=== PATIENT | male | born 1985 | race American Indian/Alaskan Native ===

== ENCOUNTER 2018-01-06 15:04 | Emergency (ER) | payer MEDICAID, OTHER ==
[2018-01-06 16:16] VITALS: BMI 21.2
--- NOTE | 2018-01-06 17:27 | ED PDOC ---
Arrival/HPI - General Chief Complaint: Flu-like Symptoms Time Seen by Provider: 01/06/18 16:08 Historian: Patient - History of Present Illness Narrative History of Present Illness (Text): 01/06/18 17:24 32yo male with PMHx of Asthma who present with 8days history of cough, malaise, nausea, subjective fever. States he has being taking Theraflu. Took Tylenol last night. States fever and cough is usually at night. Denies chest pain, SOB, diaphoresis, sick contact, travel, any other complaint. Past Medical History - Provider Review Nursing Documentation Reviewed: Yes - Cardiac Hx Cardiac Disorders: No - Pulmonary Hx Asthma: Yes - Neurological Hx Neurological Disorder: No - HEENT Hx HEENT Disorder: No - Renal Hx Renal Disorder: No - Endocrine/Metabolic Hx Endocrine Disorders: No - Hematological/Oncological Hx Blood Disorders: No - Integumentary Hx Dermatological Disorder: No - Musculoskeletal/Rheumatological Hx Musculoskeletal Disorders: No - Gastrointestinal Hx Gastrointestinal Disorders: No - Genitourinary/Gynecological Hx Genitourinary Disorders: No - Psychiatric Hx Psychophysiologic Disorder: No Hx Substance Use: No Family/Social History - Physician Review Nursing Documentation Reviewed: Yes Family/Social History: Unknown Family HX Smoking Status: Never Smoked Hx Alcohol Use: Yes Hx Substance Use: No Allergies/Home Meds Allergies/Adverse Reactions: Allergies shellfish derived Allergy (Verified 01/06/18 16:11) ANAPHYLAXIS Review of Systems - Physician Review All systems were reviewed & negative as marked: Yes - Review of Systems Constitutional: Fatigue, Fevers Eyes: Normal ENT: Normal Respiratory: Cough. absent: SOB, Sputum, Wheezing Cardiovascular: Normal Gastrointestinal: Normal Genitourinary Male: Normal Musculoskeletal: Normal Skin: Normal Neurological: Normal Endocrine: Normal Hemo/Lymphatic: Normal Psychiatric: Normal Physical Exam Vital Signs Reviewed: Yes Vital Signs Temp Pulse Resp BP Pulse Ox 01/06/18 17:44 18 98 01/06/18 17:28 98.4 F 80 18 114/78 97 Temperature: Afebrile Blood Pressure: Normal Pulse: Regular Respiratory Rate: Normal Appearance: Positive for: Well-Appearing, Non-Toxic, Comfortable Pain Distress: None Mental Status: Positive for: Alert and Oriented X 3 - Systems Exam Head: Present: Atraumatic, Normocephalic Pupils: Present: PERRL Extroacular Muscles: Present: EOMI Conjunctiva: Present: Normal Mouth: Present: Moist Mucous Membranes Neck: Present: Normal Range of Motion Respiratory/Chest: Present: Clear to Auscultation, Good Air Exchange. No: Respiratory Distress, Accessory Muscle Use, Wheezes, Decreased Breath Sounds, Rales, Retracting, Rhonchi, Tachypneic Cardiovascular: Present: Regular Rate and Rhythm, Normal S1, S2. No: Murmurs Abdomen: Present: Normal Bowel Sounds. No: Tenderness, Distention, Peritoneal Signs Back: Present: Normal Inspection Upper Extremity: Present: Normal Inspection. No: Cyanosis, Edema Lower Extremity: Present: Normal Inspection. No: Edema Neurological: Present: GCS=15, CN II-XII Intact, Speech Normal Skin: Present: Warm, Dry, Normal Color. No: Rashes Psychiatric: Present: Alert, Oriented x 3, Normal Insight, Normal Concentration Medical Decision Making ED Course and Treatment: 01/06/18 20:39 Pt present with symptoms outside of antiviral treatment. He was afebrile. CXR NAD Rapid flu was negative Pt was tx with Zpack for URI Referred to her PMD. TRT ED for any new or worsening symptoms - Lab Interpretations Lab Results: Lab Results 01/06/18 16:40: Influenza Typ A,B (EIA) Negative for flu a/b - RAD Interpretation Radiology Orders: 01/06/18 16:13 CHEST TWO VIEWS (PA/LAT) [RAD] Stat - Medication Orders Current Medication Orders: Discontinued Medications Azithromycin (Zithromax) 500 mg PO STAT STA PRN Reason: Protocol Stop: 01/06/18 17:28 Last Admin: 01/06/18 17:37 Dose: 500 mg Disposition/Present on Arrival - Present on Arrival Any Indicators Present on Arrival: No History of DVT/PE: No History of Uncontrolled Diabetes: No Urinary Catheter: No History of Decub. Ulcer: No History Surgical Site Infection Following: None - Disposition Have Diagnosis and Disposition been Completed?: Yes Diagnosis: URI (upper respiratory infection) Disposition: HOME/ ROUTINE Disposition Time: 17:30 Patient Plan: Discharge Condition: STABLE Discharge Instructions (ExitCare): Viral Upper Respiratory Infection, Adult (DC ) Additional Instructions: Take medication as directed Follow up with your Doctor Return to ED for any new or worsening symptom Prescriptions: Azithromycin [Zithromax] 250 mg PO DAILY #4 tab Referrals: PCP,NO [Primary Care Provider] - Follow up with primary [facility] at [facility] [place] [Outside] - Follow up with primary Forms: [employer] (Hungarian), WORK NOTE
[2018-01-06 17:28] VITALS: BP 114/78; PULSE 80; RESP 18; TEMP 98.4
[2018-01-06 17:45] VITALS: O2SAT 98
== END 2018-01-06 17:45 | disposition home or self-care (01) ==
LOC: ED 15:04
DX: J06.9 Acute upper respiratory infection, unspecified (principal)

== ENCOUNTER 2018-03-21 20:56 | Emergency (ER) | payer SELFPAY ==
[2018-03-21 21:44] VITALS: BP 188/78; PULSE 79; RESP 18; TEMP 98.3; O2SAT 98
[2018-03-21 21:45] VITALS: BMI 22.5
--- NOTE | 2018-03-21 22:38 | ED PDOC ---
Arrival/HPI - General Chief Complaint: Abnormal Skin Integrity Time Seen by Provider: 03/21/18 22:32 Historian: Patient - History of Present Illness Narrative History of Present Illness (Text): 03/21/18 22:32 32yo male who present to ED for right chin laceration. States he sustained the laceration when a TV stand fell and cut his chin this evening. He states his last TD booster was last year. Denies any other complaint. Past Medical History - Provider Review Nursing Documentation Reviewed: Yes - Infectious Disease Hx of Infectious Diseases: None - Cardiac Hx Cardiac Disorders: No - Pulmonary Hx Respiratory Disorders: Yes Hx Asthma: Yes - Neurological Hx Neurological Disorder: No - HEENT Hx HEENT Disorder: No - Renal Hx Renal Disorder: No - Endocrine/Metabolic Hx Endocrine Disorders: No - Hematological/Oncological Hx Blood Disorders: No - Integumentary Hx Dermatological Disorder: No - Musculoskeletal/Rheumatological Hx Musculoskeletal Disorders: No - Gastrointestinal Hx Gastrointestinal Disorders: No - Genitourinary/Gynecological Hx Genitourinary Disorders: No - Psychiatric Hx Psychophysiologic Disorder: No Hx Substance Use: No Family/Social History - Physician Review Nursing Documentation Reviewed: Yes Family/Social History: Unknown Family HX Smoking Status: Never Smoked Hx Alcohol Use: Yes Hx Substance Use: No Allergies/Home Meds Allergies/Adverse Reactions: Allergies shellfish derived Allergy (Verified 03/21/18 21:45) ANAPHYLAXIS Home Medications: Home Meds Medication Instructions Recorded Confirmed No Known Home Med 03/21/18 03/21/18 Review of Systems - Physician Review All systems were reviewed & negative as marked: Yes - Review of Systems Constitutional: Normal Eyes: Normal ENT: Normal Respiratory: Normal Cardiovascular: Normal Gastrointestinal: Normal Genitourinary Male: Normal Musculoskeletal: Normal Skin: Laceration (right chin) Neurological: Normal Endocrine: Normal Hemo/Lymphatic: Normal Psychiatric: Normal Physical Exam Vital Signs Reviewed: Yes Vital Signs Temp Pulse Resp BP Pulse Ox 03/21/18 21:42 98.3 F 79 18 188/78 H 98 Temperature: Afebrile Blood Pressure: Normal Pulse: Regular Respiratory Rate: Normal Appearance: Positive for: Well-Appearing, Non-Toxic, Comfortable Pain Distress: None Mental Status: Positive for: Alert and Oriented X 3 - Systems Exam Head: Present: Atraumatic, Normocephalic Pupils: Present: PERRL Extroacular Muscles: Present: EOMI Conjunctiva: Present: Normal Mouth: Present: Moist Mucous Membranes Neck: Present: Normal Range of Motion Respiratory/Chest: Present: Clear to Auscultation, Good Air Exchange. No: Respiratory Distress, Accessory Muscle Use Cardiovascular: Present: Regular Rate and Rhythm, Normal S1, S2. No: Murmurs Abdomen: No: Tenderness, Distention, Peritoneal Signs Back: Present: Normal Inspection Upper Extremity: Present: Normal Inspection. No: Cyanosis, Edema Lower Extremity: Present: Normal Inspection. No: Edema Neurological: Present: GCS=15, CN II-XII Intact, Speech Normal Skin: Present: Warm, Dry, Normal Color, Laceration (3.0cm superficial linear laceration noted to right chin). No: Rashes Psychiatric: Present: Alert, Oriented x 3, Normal Insight, Normal Concentration Medical Decision Making ED Course and Treatment: 03/21/18 22:55 Wound was irrigated with NS. Approximated with dermabond and steri strip. Pt advised to keep wound clean and dry. Referred to his PMD. Procedure: Wound Repair - Consent Obtained Consent obtained: Verbal - Performed by Performed by: Mid-level Provider - Indications Indication(s):: Laceration - Location Shape:: Linear Dimensions Length cm: 3.0 Depth:: Epidermis - Debris Debris:: None - Irrigated Irrigated with ml of normal saline: 50 - Complexity Complexity:: Simple (one layer) - Wound repair method [place]:: Tissue glue, Steri-strips - Muscle repiar layer closed with Muscle repair layer closed with:: Wound well approximated, Tetanus up to date - Patient tolerated procedure Patient Tolerated Procedure:: Well Disposition/Present on Arrival - Present on Arrival Any Indicators Present on Arrival: No History of DVT/PE: No History of Uncontrolled Diabetes: No Urinary Catheter: No History of Decub. Ulcer: No History Surgical Site Infection Following: None - Disposition Have Diagnosis and Disposition been Completed?: Yes Diagnosis: Laceration Disposition: HOME/ ROUTINE Disposition Time: 22:50 Patient Plan: Discharge Patient Problems: Current Active Problems Problem Status Onset Laceration Acute Condition: STABLE Discharge Instructions (ExitCare): Laceration Repair Additional Instructions: Keep wound clean and dry Follow up with your doctor Return to ED for any new or worsening symptoms Referrals: [facility] at [facility] [place] [Outside] - Follow up with primary Forms: [employer] (Citizen [place])
== END 2018-03-21 22:55 | disposition home or self-care (01) ==
LOC: ED 20:56
DX: S01.81XA Laceration without foreign body of other part of head, initial encounter (principal); W20.8XXA Other cause of strike by thrown, projected or falling object, initial encounter

== ENCOUNTER 2018-06-27 20:35 | Emergency (ER) | payer SELFPAY ==
[2018-06-27 20:50] VITALS: BMI 21.2
[2018-06-27 20:51] VITALS: TEMP 98.4
[2018-06-27] MEDS ORDERED: Iohexol 240 (50 ml) ONE (21:42)
--- NOTE | 2018-06-27 21:44 | ED PDOC ---
Arrival/HPI <Donato Gaffney - Last Filed: 06/27/18 23:55> - General Historian: Patient - History of Present Illness Time/Duration: Other (4 days) Symptom Onset: Sudden Symptom Course: Worsening Activities at Onset: Rest, Light Context: Home <Cristy Johnson PA-C - Last Filed: 06/28/18 00:38> - General Chief Complaint: Abdominal Pain Time Seen by Provider: 06/27/18 21:07 - History of Present Illness Narrative History of Present Illness (Text): 06/27/18 21:40 A 32 year old male, with no significant past medical history, presents to the emergency department with a complaint of 4 day duration right lower quadrant abdominal pain. Patient states that 4 days ago the pain was intermittent and mild, but today the pain worsened becoming more constant. The patient denies fevers, chills, headache, dizziness, chest pain, shortness of breath, dyspnea on exertion, cough, nausea, vomiting, diarrhea, back pain, neck pain, urinary/ bowel changes, or any other complaint. (Cristy Johnson PA-C) Past Medical History - Provider Review Nursing Documentation Reviewed: Yes - Infectious Disease Hx of Infectious Diseases: None - Cardiac Hx Cardiac Disorders: No - Pulmonary Hx Respiratory Disorders: Yes Hx Asthma: Yes - Neurological Hx Neurological Disorder: No - HEENT Hx HEENT Disorder: No - Renal Hx Renal Disorder: No - Endocrine/Metabolic Hx Endocrine Disorders: No - Hematological/Oncological Hx Blood Disorders: No - Integumentary Hx Dermatological Disorder: No - Musculoskeletal/Rheumatological Hx Musculoskeletal Disorders: No - Gastrointestinal Hx Gastrointestinal Disorders: No - Genitourinary/Gynecological Hx Genitourinary Disorders: No - Psychiatric Hx Psychophysiologic Disorder: No Hx Substance Use: No <Cristy Johnson PA-C - Last Filed: 06/28/18 00:38> Family/Social History - Physician Review Nursing Documentation Reviewed: Yes Family/Social History: No Known Family HX Smoking Status: Never Smoked Hx Alcohol Use: Yes Hx Substance Use: No <Cristy Johnson PA-C - Last Filed: 06/28/18 00:38> Allergies/Home Meds <Donato Gaffney - Last Filed: 06/27/18 23:55> <Cristy Johnson PA-C - Last Filed: 06/28/18 00:38> Allergies/Adverse Reactions: Allergies shellfish derived Allergy (Verified 06/27/18 20:50) ANAPHYLAXIS Review of Systems - Physician Review All systems were reviewed & negative as marked: Yes - Review of Systems Constitutional: absent: Fevers Respiratory: absent: SOB, Cough Cardiovascular: absent: Chest Pain, ANDUJAR Gastrointestinal: Abdominal Pain (RUQ pain). absent: Stool Changes, Diarrhea, Nausea, Vomiting Genitourinary Male: absent: Urinary Output Changes Musculoskeletal: absent: Back Pain, Neck Pain Neurological: absent: Headache, Dizziness <Cristy Johnson PA-C - Last Filed: 06/28/18 00:38> Physical Exam Vital Signs Reviewed: Yes Temperature: Afebrile Blood Pressure: Normal Pulse: Regular Respiratory Rate: Normal Appearance: Positive for: Well-Appearing, Non-Toxic, Comfortable Pain Distress: None Mental Status: Positive for: Alert and Oriented X 3 - Systems Exam Head: Present: Atraumatic, Normocephalic Pupils: Present: PERRL Extroacular Muscles: Present: EOMI Conjunctiva: Present: Normal Mouth: Present: Moist Mucous Membranes Neck: Present: Normal Range of Motion Respiratory/Chest: Present: Clear to Auscultation, Good Air Exchange. No: Respiratory Distress, Accessory Muscle Use Cardiovascular: Present: Regular Rate and Rhythm, Normal S1, S2. No: Murmurs Abdomen: No: Tenderness, Distention, Peritoneal Signs, Rebound, Guarding, McBurney's Point Tender, Rovsing's Sign Present Back: Present: Normal Inspection. No: CVA Tenderness, Midline Tenderness, Paraspinal Tenderness Upper Extremity: Present: Normal Inspection. No: Cyanosis, Edema Lower Extremity: Present: Normal Inspection. No: Edema Neurological: Present: GCS=15, CN II-XII Intact, Speech Normal Skin: Present: Warm, Dry, Normal Color. No: Rashes Psychiatric: Present: Alert, Oriented x 3, Normal Insight, Normal Concentration <Cristy Johnson PA-C - Last Filed: 06/28/18 00:38> Vital Signs Temp Pulse Resp BP Pulse Ox 06/27/18 22:36 98.4 F 70 20 125/74 100 06/27/18 20:50 98.4 F 73 18 127/78 97 Medical Decision Making <Donato Gaffney - Last Filed: 06/27/18 23:55> - Lab Interpretations I have reviewed the lab results: Yes <Cristy Johnson PA-C - Last Filed: 06/28/18 00:38> ED Course and Treatment: 06/27/18 21:45 Impression: A 32 year old male presents to the emergency department with 4 day duration right upper quadrant abdominal pain. Plan: -- Abdomen/Pelvis CT -- Urinalysis -- Urine Culture -- Labs -- Toradol -- Reassess and disposition Progress Notes: Labs : UA +blood and +evidence of infection, rest of the labs are wnl. CT Abdomen and Pelvis Without Intravenous Contrast CLINICAL HISTORY: 32 years old, male; Pain; Abdominal pain; Localized; Right; Additional info: Rlq pain, R/O appendicitis TECHNIQUE: Axial computed tomography images of the abdomen and pelvis without intravenous contrast. All CT scans at this facility use at least one of these dose optimization techniques: automated exposure control; mA and/or kV adjustment per patient size (includes targeted exams where dose is matched to clinical indication); or iterative reconstruction. Coronal and sagittal reformatted images were created and reviewed. COMPARISON: No relevant prior studies available. FINDINGS: Lung bases: Unremarkable. No mass. No consolidation. ABDOMEN: Liver: Unremarkable. Gallbladder and bile ducts: Unremarkable. No calcified stones. No ductal dilation. Pancreas: Pancreas evaluation is limited. No ductal dilation. Spleen: Unremarkable. No splenomegaly. Adrenals: Unremarkable. No mass. Kidneys and ureters: 4 mm calculus is noted in the right proximal ureter with right mild hydronephrosis. Non-obstructing calculus in the left kidney. Stomach and bowel: Bowel evaluation is limited. No obstruction. No mucosal thickening. PELVIS: Appendix: No findings to suggest acute appendicitis. Bladder: Unremarkable. No stones. Reproductive: Unremarkable as visualized. ABDOMEN and PELVIS: Intraperitoneal space: Unremarkable. No free air. No significant fluid collection. Bones/joints: No acute fracture. No dislocation. Soft tissues: Unremarkable. Vasculature: Unremarkable. No abdominal aortic aneurysm. Lymph nodes: There are few lymph nodes in the right lower quadrant. IMPRESSION: 4 mm calculus is noted in the right proximal ureter with right mild hydronephrosis. Dictated and Authenticated by: Gale Fong MD 06/27/2018 11:20 PM Eastern Time ([place] & [place]) On re-evaluation, patient reports improvement of symptoms, denies any abdominal pain, flank pain or nausea. On exam, patient remains AAOx3, in no acute distress. Diagnostic results d/w the patient in great detail. Diagnosis of renal colic and UTI d/w the patient. Based on history, exam and diagnostic results, plan will be for outpatient follow up. Patient instructed to follow-up with referral provided in 1-2 days without fail. Advised to take medication as prescribed. Return to the emergency room at any time for any new or worsening symptoms. Patient states he fully agrees with and understands discharge instructions. States that he agrees with the plan and disposition. Verbalized and repeated discharge instructions and plan. I have given the patient opportunity to ask any additional questions. (Alex CISNEROS, Cristy Hernandez) - Lab Interpretations Lab Results: 06/27/18 21:31 06/27/18 21:31 Lab Results 06/27/18 22:15: Urine Color Yellow, Urine Appearance Sl cloudy, Urine pH 6.0, Ur Specific [place] 1.015, Urine Protein Negative, Urine Glucose (UA) Negative, Urine Ketones Negative, Urine Blood Large H, Urine Nitrate Negative, Urine Bilirubin Negative, Urine Urobilinogen 0.2, Ur Leukocyte Esterase Small H, Urine RBC Tntc, Urine WBC 1 - 3, Ur Epithelial Cells 0 - 2, Urine Bacteria Rare , Urine Other Mucus 06/27/18 21:31: Sodium 142, Potassium 3.4 L, Chloride 102, Carbon Dioxide 27, Anion Gap 16, BUN 11, Creatinine 0.9, Est GFR ( Amer) > 60, Est GFR (Non- Af Amer) > 60, Random Glucose 102, Calcium 9.4, Total Bilirubin 0.8, AST 30, ALT 27, Alkaline Phosphatase 80, Total Protein 9.5 H, Albumin 4.7, Globulin 4.8 , Albumin/Globulin Ratio 1.0 L, Lipase 42 06/27/18 21:31: WBC 9.9, RBC 4.87, Hgb 14.8, Hct 43.7, MCV 89.7, MCH 30.4, MCHC 33.9, RDW 12.7, Plt Count 292, MPV 10.5, Gran % 58.7, Lymph % (Auto) 30.1, [place] % (Auto) 9.0 H, Eos % (Auto) 2.0, Baso % (Auto) 0.2, Gran # 5.83, Lymph # (Auto ) 3.0, [place] # (Auto) 0.9 H, Eos # (Auto) 0.2, Baso # (Auto) 0.02 - RAD Interpretation Radiology Orders: 06/27/18 21:30 ABD & PELVIS PO CONTRAST ONLY [CT] Stat - Medication Orders Current Medication Orders: Discontinued Medications Ceftriaxone Sodium (Rocephin 1 Gram Ivpb) 1 gm in 100 mls @ 200 mls/hr IVPB STAT STA PRN Reason: Protocol Stop: 06/28/18 00:00 Last Admin: 06/28/18 00:08 Dose: 200 mls/hr eMAR Start Stop Document 06/28/18 00:08 LA (Rec: 06/28/18 00:08 [email or web address]) Intravenous Solution Start Date 06/28/18 Start Time 00:08 End Date 06/28/18 End time 00:38 Total Infusion Time 30 Ketorolac Tromethamine (Toradol) 30 mg IVP STAT STA Stop: 06/27/18 21:31 Last Admin: 06/27/18 21:40 Dose: 30 mg [facility] Pain Assessment Document 06/27/18 21:40 LA (Rec: 06/27/18 21:40 LA [email or web address]) Pain Reassessment Is this a pain reassessment? No Sleep Is patient sleeping during reassessment? No Presence of Pain Presence of Pain Yes Pain Scale Used Pain Scale Used Numeric Location Pain Location Body Site Abdomen Description Description Intermittent Intensity of Pain at present 6 Pain Behavior Guarding IVP Administration Document 06/27/18 21:40 LA (Rec: 06/27/18 21:40 [email or web address]) Charges for Administration # of IVP Administrations 1 Re-Assess: JEIMY Pain Assessment Document 06/27/18 22:40 LA (Rec: 06/28/18 00:09 LA [facility]) Pain Reassessment Is this a pain reassessment? Yes Sleep Is patient sleeping during reassessment? No Presence of Pain Presence of Pain Yes Pain Scale Used Pain Scale Used Numeric Description Intensity of Pain at present 2 Tamsulosin HCl (Flomax) 0.4 mg PO STAT STA Stop: 06/27/18 23:32 Last Admin: 06/28/18 00:08 Dose: 0.4 mg - PA / WASTEWATER DESIGN ENGINEER / Resident Statement JAYMIE has reviewed & agrees with the documentation as recorded. <YeimyDonato - Last Filed: 06/27/18 23:55> - PA / WASTEWATER DESIGN ENGINEER / Resident Statement JAYMIE has reviewed & agrees with the documentation as recorded. - Scribe Statement The provider has reviewed the documentation as recorded by the Scribe <Cristy Johnson PA-C - Last Filed: 06/28/18 00:38> - Scribe Statement Shayla Zamudio Provider Scribe Attestation: All medical record entries made by the Scribe were at my direction and personally dictated by me. I have reviewed the chart and agree that the record accurately reflects my personal performance of the history, physical exam, medical decision making, and the department course for this patient. I have also personally directed, reviewed, and agree with the discharge instructions and disposition. (Cristy Johnson PA-C) Disposition/Present on Arrival <YeimyDonato - Last Filed: 06/27/18 23:55> - Present on Arrival Any Indicators Present on Arrival: No History of DVT/PE: No History of Uncontrolled Diabetes: No Urinary Catheter: No History of Decub. Ulcer: No History Surgical Site Infection Following: None - Disposition Have Diagnosis and Disposition been Completed?: Yes Disposition Time: 00:00 Patient Plan: Discharge <Cristy Johnson PA-C - Last Filed: 06/28/18 00:38> - Disposition Diagnosis: Renal colic, UTI (urinary tract infection) Disposition: HOME/ ROUTINE Condition: STABLE Discharge Instructions (ExitCare): Renal Colic (DC), Urinary Tract Infection, Adult (DC) Additional Instructions: Thank you for letting us take care of you today. You were treated for renal colic, UTI. The emergency medical care you received today was directed at your acute symptoms. If you were prescribed any medication, please fill it and take as directed. It may take several days for your symptoms to resolve. Return to the Emergency Department if your symptoms worsen, do not improve, or if you have any other problems. Please contact your doctor in 2 days for re-evaluation and follow up / or call one of the physicians/clinics you have been referred to that are listed on the Patient Visit Information form that is included in your discharge packet. Bring any paperwork you were given at discharge with you along with any medications you are taking to your follow up visit. Our treatment cannot replace ongoing medical care by a primary care provider (PCP) outside of the emergency department. Thank you for allowing the [facility] team to be part of your care today. If you had a urine culture test done : We will call you regarding any positive results If you had a CT : A Radiologist will review the ED reading if any change in treatment is needed we will contact you. Prescriptions: Ciprofloxacin [Cipro] 500 mg PO BID #14 tab Meloxicam [Mobic] 15 mg PO DAILY #20 tab Tamsulosin [Flomax] 0.4 mg PO DAILY #20 cap Referrals: FAMILY PROVIDER,NO [Primary Care Provider] - Follow up with primary Louann Cevallos MD [Staff Provider] - Follow up with primary Forms: [employer] (Polish)
[2018-06-27 21:53] LABS: BASO # 0.02 K/mm3 (0.0-2.0); BASO % 0.2 % (0.0-3.0); EOS # 0.2 (0.0-0.7); GRAN # 5.83 (1.4-6.5); GRAN % 58.7 % (50.0-68.0); HEMOGLOBIN 14.8 g/dL (14.0-18.0); LYMPH % 30.1 % (22.0-35.0); MEAN CELL VOLUME 89.7 fl (80.0-105.0); MEAN CORPUSCULAR HEMOGLOBIN 30.4 pg (25.0-35.0); MEAN CORPUSCULAR HGB CONC 33.9 g/dl (31.0-37.0); MEAN PLATELET VOLUME 10.5 fl (7.0-11.0); MONO # 0.9 (0.1-0.6); RBC 4.87 10^6/uL (3.5-6.1); RED CELL DISTRIBUTION WIDTH 12.7 % (11.5-14.5); WHITE BLOOD COUNT 9.9 10^3/ul (4.5-11.0)
[2018-06-27 21:58] LABS: ALBUMIN 4.7 g/dL (3.0-4.8); ALT/SGPT 27 U/L (7-56); AST/SGOT 30 U/L (17-59); BLOOD UREA NITROGEN 11 mg/dL (7-21); CALCIUM 9.4 mg/dL (8.4-10.5); GFR AFRICAN-AMERICAN > 60; GFR NON-AFRICAN AMERICAN > 60; LIPASE 42 U/L (23-300)
[2018-06-27 22:41] LABS: URINE BILIRUBIN NEGATIVE (NEGATIVE); URINE BLOOD LARGE (NEGATIVE); URINE GLUCOSE (UA) NEGATIVE (NEGATIVE); URINE LEUKOCYTE ESTERASE SMALL Leu/uL (NEGATIVE); URINE PROTEIN NEGATIVE mg/dL (<30 mg/dL); URINE UROBILINOGEN 0.2 E.U./dL (<1 E.U./dL)
[2018-06-27 22:42] LABS: URINE COLOR YELLOW (YELLOW)
[2018-06-27 22:43] LABS: URINE APPEARANCE SL CLOUDY (CLEAR)
[2018-06-27 22:53] LABS: URINE RBC TNTC /hpf (0-2)
[2018-06-27 22:54] LABS: URINE BACTERIA RARE (NEG); URINE EPITHELIAL CELLS 0 - 2 /hpf (0-5)
[2018-06-27 23:08] VITALS: O2SAT 100
[2018-06-27] MEDS ORDERED: cefTRIAXone 1 gm 1 GM/100 ML BAG IVPB STA (23:31)
[2018-06-28 00:54] VITALS: BP 130/69; PULSE 75; RESP 19
--- NOTE | 2018-06-28 08:54 | CT ---
Date of service: 06/27/2018 PROCEDURE: CT Abdomen and Pelvis without intravenous contrast HISTORY: RLQ pain, r/o appendicitis COMPARISON: None. TECHNIQUE: Without contrast. Contrast dose: Radiation dose: Total exam DLP = 270 mGy-cm. This CT exam was performed using one or more of the following dose reduction techniques: Automated exposure control, adjustment of the mA and/or kV according to patient size, and/or use of iterative reconstruction technique. FINDINGS: LOWER THORAX: Unremarkable. LIVER: Unremarkable. No gross lesion or ductal dilatation. GALLBLADDER AND BILE DUCTS: Unremarkable. PANCREAS: Unremarkable. No gross lesion or ductal dilatation. SPLEEN: Unremarkable. ADRENALS: Unremarkable. No mass. KIDNEYS AND URETERS: There is a 4 mm stone in the lower pole of the left kidney. There is a 4 mm stone in the proximal right ureter with minimal hydronephrosis. VASCULATURE: Unremarkable. No aortic aneurysm. BOWEL: Unremarkable. No obstruction. No gross mural thickening. APPENDIX: Unremarkable. Normal appendix. PERITONEUM: Unremarkable. No free fluid. No free air. LYMPH NODES: Unremarkable. No enlarged lymph nodes. BLADDER: Unremarkable. REPRODUCTIVE: Unremarkable. BONES: No acute fracture. OTHER FINDINGS: The report concurs with the preliminary [facility] report IMPRESSION: There is a 4 mm stone in the lower pole of the left kidney. There is a 4 mm stone in the proximal right ureter with minimal hydronephrosis.
== END 2018-06-28 00:32 | disposition home or self-care (01) ==
LOC: ED 20:35
DX: N23 Unspecified renal colic (principal); N39.0 Urinary tract infection, site not specified
CPT/HCPCS: 74176; 80053; 81001; 83690; 85025; 87086; 96365; 96374; 99284; J0696; J1885; Q9966

== ENCOUNTER 2018-07-08 03:55 | Emergency (ER) | payer SELFPAY ==
[2018-07-08 03:55] VITALS: BMI 21.2
[2018-07-08 04:26] VITALS: RESP 18; TEMP 97.7; O2SAT 100
[2018-07-08] MEDS ORDERED: Sodium Chloride 0.9% 1,000 ML IV STA (05:22)
--- NOTE | 2018-07-08 05:27 | ED PDOC ---
Arrival/HPI - General Chief Complaint: Abdominal Pain Time Seen by Provider: 07/08/18 05:06 Historian: Patient - History of Present Illness Narrative History of Present Illness (Text): 07/08/18 05:27 33 y/o M w/ h/o kidney stone, presents to the emergency department complaining of abdominal pain on going for the last couple of days. Patient reports having recently being diagnosed with a kidney stone. Patient reports when he was seen in the ER he was given pain medication, but reportedly was discharged home with no prescriptions. Patient reports right sided abdominal pain and returned because pain worsened over time. Patient denies any fever, chills, chest pain, shortness of breath, nausea, vomiting, diarrhea, urinary symptoms, back pain, neck pain, headache, dizziness, or any other complaints. Time/Duration: Prior to Arrival Symptom Onset: Sudden Symptom Course: Worsening Severity Level: 10 Activities at Onset: Rest Context: Home Past Medical History - Provider Review Nursing Documentation Reviewed: Yes - Travel History Have you recently traveled outside [place] w/in the past 3 mons?: No - Infectious Disease Hx of Infectious Diseases: None - Cardiac Hx Cardiac Disorders: No - Pulmonary Hx Respiratory Disorders: Yes Hx Asthma: Yes - Neurological Hx Neurological Disorder: No - HEENT Hx HEENT Disorder: No - Renal Hx Renal Disorder: No - Endocrine/Metabolic Hx Endocrine Disorders: No - Hematological/Oncological Hx Blood Disorders: No - Integumentary Hx Dermatological Disorder: No - Musculoskeletal/Rheumatological Hx Musculoskeletal Disorders: No - Gastrointestinal Hx Gastrointestinal Disorders: No - Genitourinary/Gynecological Hx Genitourinary Disorders: No - Psychiatric Hx Psychophysiologic Disorder: No Hx Substance Use: No Family/Social History - Physician Review Nursing Documentation Reviewed: Yes Family/Social History: No Known Family HX Smoking Status: Never Smoked Hx Alcohol Use: Yes Hx Substance Use: No Allergies/Home Meds Allergies/Adverse Reactions: Allergies shellfish derived Allergy (Verified 06/27/18 20:50) ANAPHYLAXIS Review of Systems - Physician Review All systems were reviewed & negative as marked: Yes - Review of Systems Constitutional: absent: Fevers, Other (Chills) Respiratory: absent: SOB Cardiovascular: absent: Chest Pain Gastrointestinal: Abdominal Pain. absent: Stool Changes, Diarrhea, Nausea, Vomiting Genitourinary Male: absent: Dysuria, Frequency, Hematuria Musculoskeletal: absent: Back Pain, Neck Pain Neurological: absent: Headache, Dizziness Physical Exam Vital Signs Reviewed: Yes Vital Signs Temp Pulse Resp BP Pulse Ox 07/08/18 06:56 70 18 114/79 100 07/08/18 04:25 97.7 F 75 18 106/69 100 Temperature: Afebrile Blood Pressure: Normal Pulse: Regular Respiratory Rate: Normal Appearance: Positive for: Well-Appearing, Non-Toxic, Comfortable Pain Distress: None Mental Status: Positive for: Alert and Oriented X 3 - Systems Exam Head: Present: Atraumatic, Normocephalic Pupils: Present: PERRL Extroacular Muscles: Present: EOMI Conjunctiva: Present: Normal Mouth: Present: Moist Mucous Membranes Neck: Present: Normal Range of Motion Respiratory/Chest: Present: Clear to Auscultation, Good Air Exchange. No: Respiratory Distress, Accessory Muscle Use Cardiovascular: Present: Regular Rate and Rhythm, Normal S1, S2. No: Murmurs Abdomen: Present: Tenderness (Right lower quadrant pain). No: Distention, Peritoneal Signs Back: Present: CVA Tenderness (right-sided CVA tenderness) Upper Extremity: Present: Normal Inspection. No: Cyanosis, Edema Lower Extremity: Present: Normal Inspection. No: Edema Neurological: Present: GCS=15, CN II-XII Intact, Speech Normal Skin: Present: Warm, Dry, Normal Color. No: Rashes Psychiatric: Present: Alert, Oriented x 3, Normal Insight, Normal Concentration Medical Decision Making ED Course and Treatment: 07/08/18 05:27 Impression: 33 y/o M w/ R abdominal pain and CVA tenderness consistent w/ renal colic Plan: -- IV Fluids --Toradol --Zofran --Morphine -- UA -- Reassess and disposition Prior Visits: Notes and results from pervious visits were reviewed. Patient was last seen in the emergency department on 06/27/18 presents complaining of right lower quadrant abdominal pain for the last 4 days. Patient was discharged. Progress Notes: 07/08/18 06:15 Patient reexamined and feels better after analgesics. Advised to continue supportive therapy with continous intake of fluids, pain medications when necessary and straining of urine. Patient demonstrates understanding and will follow up with PCP. Scripts for pain control provided. He is ambulatory and stable for discharge. - Medication Orders Current Medication Orders: Discontinued Medications Sodium Chloride (Sodium Chloride 0.9%) 1,000 mls @ 999 mls/hr IV .Q1H1M STA Stop: 07/08/18 06:22 Last Admin: 07/08/18 05:50 Dose: 999 mls/hr eMAR Start Stop Document 07/08/18 05:50 CNR (Rec: 07/08/18 05:50 CNR [id number]) Intravenous Solution Start Date 07/08/18 Start Time 05:50 End Date 07/08/18 End time 06:50 Total Infusion Time 60 Ketorolac Tromethamine (Toradol) 30 mg IVP STAT STA Stop: 07/08/18 05:23 Last Admin: 07/08/18 05:50 Dose: 30 mg MAR Pain Assessment Document 07/08/18 05:50 CNR (Rec: 07/08/18 05:50 CNR [id number]) Pain Reassessment Is this a pain reassessment? No IVP Administration Document 07/08/18 05:50 CNR (Rec: 07/08/18 05:50 CNR [id number]) Charges for Administration # of IVP Administrations 1 Morphine Sulfate (Morphine) 2 mg IVP STAT STA Stop: 07/08/18 06:15 Last Admin: 07/08/18 06:28 Dose: 2 mg MAR Pain Assessment Document 07/08/18 06:28 CNR (Rec: 07/08/18 06:28 CNR [id number]) Pain Reassessment Is this a pain reassessment? No IVP Administration Document 07/08/18 06:28 CNR (Rec: 07/08/18 06:28 CNR [id number]) Charges for Administration # of IVP Administrations 1 Ondansetron HCl (Zofran Inj) 4 mg IVP STAT STA Stop: 07/08/18 05:25 Last Admin: 07/08/18 05:49 Dose: 4 mg IVP Administration Document 07/08/18 05:49 CNR (Rec: 07/08/18 05:49 CNR [id number]) Charges for Administration # of IVP Administrations 1 - Scribe Statement The provider has reviewed the documentation as recorded by the Clarice Funes Provider Scribe Attestation: All medical record entries made by the Scribe were at my direction and personally dictated by me. I have reviewed the chart and agree that the record accurately reflects my personal performance of the history, physical exam, medical decision making, and the department course for this patient. I have also personally directed, reviewed, and agree with the discharge instructions and disposition. Disposition/Present on Arrival - Present on Arrival Any Indicators Present on Arrival: No History of DVT/PE: No History of Uncontrolled Diabetes: No Urinary Catheter: No History of Decub. Ulcer: No History Surgical Site Infection Following: None - Disposition Have Diagnosis and Disposition been Completed?: Yes Diagnosis: Renal colic Disposition: HOME/ ROUTINE Disposition Time: 06:46 Patient Plan: Discharge Condition: STABLE Discharge Instructions (ExitCare): Renal Colic (DC) Prescriptions: oxyCODONE/Acetaminophen [Percocet 5/325 mg Tab] 1 ea PO PRN PRN 3 Days #6 tab PRN Reason: Pain, Severe (8-10) Referrals: FAMILY PROVIDER,NO [Primary Care Provider] - Follow up with primary Forms: [facility] ([place])
[2018-07-08] MEDS ORDERED: Morphine 2 mg/ml ISec IVP STA (06:14)
[2018-07-08 06:57] VITALS: BP 114/79; PULSE 70
== END 2018-07-08 06:56 | disposition home or self-care (01) ==
LOC: ED 03:55
DX: N23 Unspecified renal colic (principal)
CPT/HCPCS: 96361; 96374; 96375; 99283; J1885; J2270; J2405; J7030

== ENCOUNTER 2019-04-15 01:25 | Observation (INO) | payer SELFPAY ==
[2019-04-15 02:07] VITALS: BMI 21.9
[2019-04-15] MEDS ORDERED: Sodium Chloride 0.9% 1,000 ML IV STA (02:15)
--- NOTE | 2019-04-15 02:19 | ED PDOC ---
Arrival/HPI - General Chief Complaint: Back Pain Time Seen by Provider: 04/15/19 02:11 Historian: Patient - History of Present Illness Narrative History of Present Illness (Text): 04/15/19 02:16 A 33 year old male, whose past medical history includes kidney stones, presents to the emergency department with a complaint of left sided abdominal/flank pain which started early today. He describes it as sharp and intermittent with associated nausea and vomiting. He denies fevers, chills, headache, dizziness, chest pain, shortness of breath, dyspnea on exertion, cough, diarrhea, neck pain, urinary/bowel changes, difficulty urinating, or any other complaint. Time/Duration: Other (Today) Symptom Onset: Sudden Symptom Course: Unchanged Activities at Onset: Rest, Light Context: Home Past Medical History - Provider Review Nursing Documentation Reviewed: Yes - Infectious Disease Hx of Infectious Diseases: None - Cardiac Hx Cardiac Disorders: No - Pulmonary Hx Respiratory Disorders: Yes Hx Asthma: Yes - Neurological Hx Neurological Disorder: No - HEENT Hx HEENT Disorder: No - Renal Hx Renal Disorder: No - Endocrine/Metabolic Hx Endocrine Disorders: No - Hematological/Oncological Hx Blood Disorders: No - Integumentary Hx Dermatological Disorder: No - Musculoskeletal/Rheumatological Hx Musculoskeletal Disorders: No - Gastrointestinal Hx Gastrointestinal Disorders: No - Genitourinary/Gynecological Hx Genitourinary Disorders: No - Psychiatric Hx Psychophysiologic Disorder: No Hx Substance Use: No - Anesthesia Hx Anesthesia: Yes Hx Anesthesia Reactions: No Hx Malignant Hyperthermia: No Family/Social History - Physician Review Nursing Documentation Reviewed: Yes Family/Social History: No Known Family HX Smoking Status: Never Smoked Hx Alcohol Use: Yes Hx Substance Use: No Allergies/Home Meds Allergies/Adverse Reactions: Allergies shellfish derived Allergy (Verified 04/15/19 02:07) ANAPHYLAXIS Home Medications: Home Meds Medication Instructions Recorded Confirmed Albuterol 0.083% [Albuterol 0.083% 1 puff INH PRN PRN 04/15/19 04/15/19 Inhal Jocelynn (2.5 mg/3 ml) UD] Review of Systems - Physician Review All systems were reviewed & negative as marked: Yes - Review of Systems Constitutional: absent: Fevers Respiratory: absent: SOB, Cough Cardiovascular: absent: Chest Pain, ANDUJAR Gastrointestinal: Abdominal Pain, Nausea, Vomiting. absent: Stool Changes, Diarrhea Genitourinary Male: absent: Urinary Output Changes Musculoskeletal: absent: Neck Pain Neurological: absent: Headache, Dizziness Physical Exam Appearance: Positive for: Well-Appearing, Non-Toxic, Comfortable Pain Distress: None Mental Status: Positive for: Alert and Oriented X 3 - Systems Exam Head: Present: Atraumatic, Normocephalic Pupils: Present: PERRL Extroacular Muscles: Present: EOMI Conjunctiva: Present: Normal Mouth: Present: Moist Mucous Membranes Neck: Present: Normal Range of Motion Respiratory/Chest: Present: Clear to Auscultation, Good Air Exchange. No: Respiratory Distress, Accessory Muscle Use Cardiovascular: Present: Regular Rate and Rhythm, Normal S1, S2. No: Murmurs Abdomen: No: Tenderness, Distention, Peritoneal Signs Back: Present: Normal Inspection Upper Extremity: Present: Normal Inspection. No: Cyanosis, Edema Lower Extremity: Present: Normal Inspection. No: Edema Neurological: Present: GCS=15, CN II-XII Intact, Speech Normal Skin: Present: Warm, Dry, Normal Color. No: Rashes Psychiatric: Present: Alert, Oriented x 3, Normal Insight, Normal Concentration Medical Decision Making ED Course and Treatment: 04/15/19 02:18 Impression: A 33 year old male presents to the emergency department with a complaint of left sided abdominal/flank pain. Plan: -- Abdomen/Pelvis CT -- Urinalysis -- Labs -- Toradol, Zofran, and IV Fluids -- Reassess and disposition Prior Visits: Notes and results from previous visits were reviewed. Progress Notes: CT SCAN OF THE ABDOMEN AND PELVIS WITHOUT ORAL OR IV CONTRAST. .CT SCAN OF THE ABDOMEN AND PELVIS WITHOUT ORAL OR IV CONTRAST. CLINICAL INDICATION: Left-sided abdominal pain. TECHNIQUE: Axial and reformatted sagittal and coronal images of the abdomen pelvis obtained without IV contrast administration. COMPARISON: None. FINDINGS: The visualized lung bases are unremarkable. Normal unenhanced liver. Normal gallbladder and extrahepatic biliary system. Normal unenhanced spleen. Normal pancreas. Normal bilateral adrenal glands. Normal size of the right kidney. There is no right renal mass. There are no right renal calculi. There is no right hydronephrosis. Normal visualized right ureter. Normal size of the left kidney. There is no left renal mass. 4mm left renal nonobstructing stone. 4.4 mm obstructing stone of the left ureter at L3 level. Mild left hydroureteronephrosis. Left perinephric free fluid and fat stranding. Normal visualized stomach. Normal small intestine. Normal colon. The appendix is visualized and appears normal. There is no demonstrated peritoneal fluid. Normal abdominal aorta. Normal inferior vena cava. Normal retroperitoneum. Mild diffuse thickening of the urinary bladder. There is no pelvic mass lesion or lymphadenopathy. There is no pelvic fluid. Mild prostatomegaly. Scattered prostatic calcifications. Normal abdominal wall. Normal osseous structures. IMPRESSION: Obstructing stone of the proximal left ureter. Electronically signed on April 15, 2019 4:37:38 AM EDT by: Avel Love M.D., Certified by ABR, MSK, Neuroradiology 04/15/19 05:01: Case discussed with Dr. Brown and emergency medical service manager. Accept patient for [facility]. 04/15/19 05:03 - Lab Interpretations I have reviewed the lab results: Yes - RAD Interpretation Radiology Orders: 04/15/19 02:15 ABD & PELVIS W/O PO OR IV CONT [CT] Stat - Medication Orders Current Medication Orders: Sodium Chloride (Sodium Chloride 0.9%) 1,000 mls @ 999 mls/hr IV .Q1H1M STA Stop: 04/15/19 03:15 Ketorolac Tromethamine (Toradol) 30 mg IVP ONCE ONE Stop: 04/15/19 02:16 Ondansetron HCl (Zofran Inj) 4 mg IVP ONCE ONE Stop: 04/15/19 02:16 - Scribe Statement The provider has reviewed the documentation as recorded by the Michelleibe Shayla Zamudio Provider Scribe Attestation: All medical record entries made by the Scribe were at my direction and personally dictated by me. I have reviewed the chart and agree that the record accurately reflects my personal performance of the history, physical exam, medical decision making, and the department course for this patient. I have also personally directed, reviewed, and agree with the discharge instructions and disposition. Disposition/Present on Arrival - Present on Arrival Any Indicators Present on Arrival: No History of DVT/PE: No History of Uncontrolled Diabetes: No Urinary Catheter: No History of Decub. Ulcer: No History Surgical Site Infection Following: None - Disposition Have Diagnosis and Disposition been Completed?: Yes Diagnosis: Renal colic, Intractable pain Disposition: HOSPITALIZED Disposition Time: 05:08 Condition: STABLE Forms: [facility] ([place])
[2019-04-15 03:25] LABS: HEMOGLOBIN 14.5 g/dL (14.0-18.0); MEAN CELL VOLUME 91.9 fl (80.0-105.0); MEAN CORPUSCULAR HEMOGLOBIN 30.1 pg (25.0-35.0); MEAN CORPUSCULAR HGB CONC 32.7 g/dl (31.0-37.0); MEAN PLATELET VOLUME 10.6 fl (7.0-11.0); RBC 4.82 10^6/uL (3.5-6.1); RED CELL DISTRIBUTION WIDTH 12.5 % (11.5-14.5); WHITE BLOOD COUNT 16.9 10^3/uL (4.5-11.0)
[2019-04-15 03:36] LABS: ALBUMIN 4.4 g/dL (3.0-4.8); ALT/SGPT 22 U/L (7-56); AST/SGOT 35 U/L (17-59); BLOOD UREA NITROGEN 11 mg/dL (7-21); CALCIUM 9.5 mg/dL (8.4-10.5); GFR NON-AFRICAN AMERICAN > 60; LIPASE 50 U/L (23-300)
[2019-04-15] MEDS ORDERED: Morphine 4 mg/ml ISec IVP STA (05:05)
[2019-04-15 05:17] LABS: PH,URINE 6.5 (4.7-8.0); URINE BILIRUBIN NEGATIVE (NEGATIVE); URINE BLOOD MODERATE (NEGATIVE); URINE GLUCOSE (UA) NEGATIVE (NEGATIVE); URINE LEUKOCYTE ESTERASE NEGATIVE Leu/uL (NEGATIVE); URINE PROTEIN NEGATIVE mg/dL (<30 mg/dL); URINE UROBILINOGEN 0.2 E.U./dL (<1 E.U./dL)
[2019-04-15 05:18] LABS: URINE APPEARANCE CLEAR (CLEAR); URINE COLOR YELLOW (YELLOW)
[2019-04-15 05:33] LABS: URINE BACTERIA MOD /hpf
--- NOTE | 2019-04-15 05:33 | CP.PCM.HP ---
<Tyrese Rider - Last Filed: 04/15/19 06:34> History of Present Illness - History of Present Illness History of Present Illness: Tyrese Rider, PGY1 H&P for Dr. Brown cc: left sided flank pain with n/v Patient is a 33 year old male, whose past medical history includes kidney stones (R-sided), presents to the emergency department with a complaint of left sided abdominal/flank pain with associated nausea and vomiting. He describes it as sharp and intermittent pain that radiates to the groin. Patient says he adequately drinks fluids but he has had a kidney stone in the past that passed by itself without any intervetion. He denies fevers, chills, headache, dizziness, chest pain, shortness of breath, dyspnea on exertion, cough, diarrhea, neck pain, urinary/bowel changes, difficulty urinating, or any other complaint. A full 12 point ROS was conducted and unremarkable except as stated above. PMHx: kidney stone (R-sided) PSHx: denies Meds: albuterol prn Allergies: NKDA SocialHx: denies smoking, illicit drug use. Social drinker. FamHx: grandma had breast caner. Mom had stroke. Present on Admission - Present on Admission Any Indicators Present on Admission: No Review of Systems - Review of Systems All systems: reviewed and no additional remarkable complaints except (as per HPI) Past Patient History - Infectious Disease Hx of Infectious Diseases: None - Past Social History Smoking Status: Never Smoked - CARDIAC Hx Cardiac Disorders: No - PULMONARY Hx Respiratory Disorders: Yes Hx Asthma: Yes - NEUROLOGICAL Hx Neurological Disorder: No - HEENT Hx HEENT Problems: No - RENAL Hx Chronic Kidney Disease: No - ENDOCRINE/METABOLIC Hx Endocrine Disorders: No - HEMATOLOGICAL/ONCOLOGICAL Hx Blood Disorders: No - INTEGUMENTARY Hx Dermatological Problems: No - MUSCULOSKELETAL/RHEUMATOLOGICAL Hx Musculoskeletal Disorders: No - GASTROINTESTINAL Hx Gastrointestinal Disorders: No - GENITOURINARY/GYNECOLOGICAL Hx Genitourinary Disorders: No - PSYCHIATRIC Hx Psychophysiologic Disorder: No Hx Substance Use: No - SURGICAL HISTORY Hx Surgeries: No - ANESTHESIA Hx Anesthesia: Yes Hx Anesthesia Reactions: No Hx Malignant Hyperthermia: No Meds Allergies/Adverse Reactions: Allergies Allergy/AdvReac Type Severity Reaction Status Date / Time shellfish derived Allergy ANAPHYLAXIS Verified 04/15/19 02:07 Physical Exam - Constitutional Appears: No Acute Distress - Head Exam Head Exam: ATRAUMATIC, NORMAL INSPECTION, NORMOCEPHALIC - Eye Exam Eye Exam: EOMI, Normal appearance Pupil Exam: NORMAL ACCOMODATION - ENT Exam ENT Exam: Mucous Membranes Moist - Respiratory Exam Respiratory Exam: Clear to Auscultation Bilateral. absent: Rales, Rhonchi, Wheezes, Respiratory Distress - Cardiovascular Exam Cardiovascular Exam: RRR, +S1, +S2 - GI/Abdominal Exam GI & Abdominal Exam: Normal Bowel Sounds, Soft. absent: Distended, Guarding, Rigid, Tenderness - Extremities Exam Extremities exam: Positive for: normal capillary refill, normal inspection, pedal pulses present - Back Exam Back exam: CVA tenderness (L) - Neurological Exam Neurological exam: Alert, CN II-XII Intact, Normal Gait, Oriented x3 - Psychiatric Exam Psychiatric exam: Normal Affect, Normal Mood - Skin Skin Exam: Dry, Intact, Normal Color, Warm Results - Vital Signs Recent Vital Signs: Last Vital Signs Temp 98.6 F 04/15/19 02:24 Pulse 81 04/15/19 04:47 Resp 13 04/15/19 04:47 BP 121/92 H 04/15/19 04:47 Pulse Ox 96 04/15/19 04:47 - Labs Result Diagrams: 04/15/19 03:07 04/15/19 03:07 Labs: Laboratory Results - last 24 hr 04/15/19 04/15/19 04/15/19 03:07 03:07 04:40 WBC 16.9 H RBC 4.82 Hgb 14.5 Hct 44.3 MCV 91.9 MCH 30.1 MCHC 32.7 RDW 12.5 Plt Count 282 MPV 10.6 Sodium 140 Potassium 4.5 Chloride 104 Carbon Dioxide 25 Anion Gap 15 BUN 11 Creatinine 1.2 Est GFR ( Amer) > 60 Est GFR (Non-Af Amer) > 60 Random Glucose 107 Calcium 9.5 Total Bilirubin 0.7 AST 35 ALT 22 Alkaline Phosphatase 98 Total Protein 8.8 H Albumin 4.4 Globulin 4.4 Albumin/Globulin Ratio 1.0 L Lipase 50 Urine Color Yellow Urine Appearance Clear Urine pH 6.5 Ur Specific [place] 1.015 Urine Protein Negative Urine Glucose (UA) Negative Urine Ketones Negative Urine Blood Moderate H Urine Nitrate Negative Urine Bilirubin Negative Urine Urobilinogen 0.2 Ur Leukocyte Esterase Negative Assessment & Plan - Assessment and Plan (Free Text) Assessment: Patient is a 33 year old male, whose past medical history includes kidney stones (R-sided), presents to the emergency department with a complaint of left sided abdominal/flank pain with associated nausea and vomiting. Plan: Obstructing Nephrolithiasis - NPO - Strain urine calculi - Flomax - Toradol 15mg IVP q6 prn for moderate pain control - Morphine 2mg IVP q6 prn for severe pain control - IVF NS @ 100 cc/hr - Rocephin - zofran prn for nausea - Leukocytosis, wbc 16.9, monitor - Urology consulted due to obstruction - UA: mod blood, RBC 5-10 - CT A/P: obstructing stone in proximal left ureter. 4 mm left renal non- obstructing stone and 4.4 mm obstructing stone at the left ureter at the level of L3. Mild left hydro. ppx: scd Diet: NPO Dispo: Monitor patient on floor. Further recs from Uro. Case was discussed and reviewed with Attending Physician, Dr. Brown. <Parrish Brown - Last Filed: 04/15/19 13:43> Results - Vital Signs Recent Vital Signs: Last Vital Signs Temp 98.6 F 04/15/19 02:24 Pulse 75 04/15/19 13:09 Resp 18 04/15/19 13:09 BP 124/84 04/15/19 06:50 Pulse Ox 97 04/15/19 06:50 - Labs Result Diagrams: 04/15/19 03:07 04/15/19 03:07 Labs: Laboratory Results - last 24 hr 04/15/19 04/15/19 04/15/19 03:07 03:07 04:40 WBC 16.9 H RBC 4.82 Hgb 14.5 Hct 44.3 MCV 91.9 MCH 30.1 MCHC 32.7 RDW 12.5 Plt Count 282 MPV 10.6 Sodium 140 Potassium 4.5 Chloride 104 Carbon Dioxide 25 Anion Gap 15 BUN 11 Creatinine 1.2 Est GFR ( Amer) > 60 Est GFR (Non-Af Amer) > 60 Random Glucose 107 Calcium 9.5 Total Bilirubin 0.7 AST 35 ALT 22 Alkaline Phosphatase 98 Total Protein 8.8 H Albumin 4.4 Globulin 4.4 Albumin/Globulin Ratio 1.0 L Lipase 50 Urine Color Yellow Urine Appearance Clear Urine pH 6.5 Ur Specific [place] 1.015 Urine Protein Negative Urine Glucose (UA) Negative Urine Ketones Negative Urine Blood Moderate H Urine Nitrate Negative Urine Bilirubin Negative Urine Urobilinogen 0.2 Ur Leukocyte Esterase Negative Urine RBC 5 - 10 H Urine WBC 2 - 5 Ur Epithelial Cells 1 - 3 Urine Bacteria Mod Attending/Attestation - Attestation I have personally seen and examined this patient.: Yes I have fully participated in the care of the patient.: Yes I have reviewed all pertinent clinical information: Yes Notes (Text): 04/15/19 13:42. Patient was seen in the emergency room when he was in room #11. Agree with history, physical exam, assessment and plan.
[2019-04-15] MEDS ORDERED: Sodium Chloride 0.9% 1,000 ML IV SCH (06:15)
[2019-04-15] MEDS: Morphine 2 mg/ml ISec IVP PRN ×2 (10:12→18:05)
[2019-04-15] MEDS: cefTRIAXone 1 gm 1 GM/100 ML BAG IVPB SCH (10:12)
--- NOTE | 2019-04-15 12:53 | CT ---
Date of service: 04/15/2019 PROCEDURE: CT Abdomen and Pelvis without intravenous contrast HISTORY: left abdominal/flank pain COMPARISON: None. TECHNIQUE: Contiguous images were obtained from the domes of the diaphragms to the upper thighs without the administration of intravenous contrast. Oral contrast was not administered. Radiation dose: Total exam DLP = 244.06 mGy-cm. This CT exam was performed using one or more of the following dose reduction techniques: Automated exposure control, adjustment of the mA and/or kV according to patient size, and/or use of iterative reconstruction technique. FINDINGS: LOWER THORAX: Unremarkable. LIVER: Unremarkable. No gross lesion or ductal dilatation. GALLBLADDER AND BILE DUCTS: Unremarkable. PANCREAS: Unremarkable. No gross lesion or ductal dilatation. SPLEEN: Unremarkable. ADRENALS: Unremarkable. No mass. KIDNEYS AND URETERS: 6 x 6 mm left renal pelvis calculus causing mild hydronephrosis. Additional nonobstructive left lower pole calculus. No hydronephrosis. No solid mass. VASCULATURE: Unremarkable. No aortic aneurysm. No aortic atherosclerotic calcification or mural plaque present. BOWEL: Unremarkable. No obstruction. No gross mural thickening. APPENDIX: Unremarkable. Normal appendix. PERITONEUM: Unremarkable. No free fluid. No free air. LYMPH NODES: Unremarkable. No enlarged lymph nodes. BLADDER: Unremarkable. REPRODUCTIVE: Unremarkable. BONES: No acute fracture. OTHER FINDINGS: None. IMPRESSION: Obstructive left renal pelvis calculus measuring 6 x 6 mm causing mild hydronephrosis. Additional nonobstructive left lower pole calculus.
[2019-04-15 22:14] VITALS: O2SAT 95
[2019-04-16 08:06] LABS: HEMOGLOBIN 13.6 g/dL (14.0-18.0); MEAN CELL VOLUME 92.6 fl (80.0-105.0); MEAN CORPUSCULAR HEMOGLOBIN 29.6 pg (25.0-35.0); MEAN CORPUSCULAR HGB CONC 31.9 g/dl (31.0-37.0); MEAN PLATELET VOLUME 10.5 fl (7.0-11.0); RBC 4.6 10^6/uL (3.5-6.1); RED CELL DISTRIBUTION WIDTH 12.5 % (11.5-14.5); WHITE BLOOD COUNT 8.2 10^3/uL (4.5-11.0)
[2019-04-16 08:17] LABS: ALBUMIN 3.6 g/dL (3.0-4.8); ALT/SGPT 20 U/L (7-56); AST/SGOT 26 U/L (17-59); BLOOD UREA NITROGEN 8 mg/dL (7-21); CALCIUM 8.6 mg/dL (8.4-10.5); GFR NON-AFRICAN AMERICAN > 60
[2019-04-16 08:22] VITALS: RESP 18
[2019-04-16] MEDS: cefTRIAXone 1 gm 1 GM/100 ML BAG IVPB SCH (09:54)
--- NOTE | 2019-04-16 11:18 | PCM.URO ---
Urology Progress Note - Objective Lab Studies: Reviewed (from gu standpoint pt clear for discharge// plans: kub and out pt eswl) Lab Results Last 24 Hours: Laboratory Results - last 24 hr 04/16/19 04/16/19 07:00 07:00 WBC 8.2 D RBC 4.60 Hgb 13.6 L Hct 42.6 MCV 92.6 MCH 29.6 MCHC 31.9 RDW 12.5 Plt Count 278 MPV 10.5 Sodium 137 Potassium 4.1 Chloride 107 Carbon Dioxide 25 Anion Gap 9 L BUN 8 Creatinine 0.9 Est GFR ( Amer) > 60 Est GFR (Non-Af Amer) > 60 Random Glucose 94 Calcium 8.6 Total Bilirubin 0.6 AST 26 ALT 20 Alkaline Phosphatase 72 Total Protein 7.3 Albumin 3.6 Globulin 3.7 Albumin/Globulin Ratio 1.0 L Intake & Output: Intake & Output 04/15/19 04/16/19 04/16/19 18:59 06:59 18:59 Intake Total 3380 Output Total 400 Balance -400 3380 Intake: IV 2400 Left Antecubital 2400 Oral 980 Output: Urine 400 Urine, Voided 400 Other: Voiding Method Toilet # Voids Urine, Voided 4 # Bowel Movements 0 Vital Signs: Vital Signs - 24 hr 04/15/19 04/15/19 04/15/19 13:09 14:00 22:00 Temperature 98.2 F 98.2 F Pulse Rate 75 75 Pulse Rate [ 75 Bilateral Radial] Respiratory 18 18 16 Rate Blood Pressure 120/76 126/78 O2 Sat by Pulse 96 95 Oximetry 04/16/19 06:00 Temperature 97.4 F L Pulse Rate 86 Pulse Rate [ Bilateral Radial] Respiratory 18 Rate Blood Pressure 127/85 O2 Sat by Pulse 95 Oximetry
--- NOTE | 2019-04-16 12:20 | RAD ---
Date of service: 04/16/2019 HISTORY: urolithiasis/ please compare with ct scan COMPARISON: CT scan of the abdomen pelvis dated 04/15/2019 TECHNIQUE: 3 view obtained. FINDINGS: BOWEL: Normal. No obstruction. No free air. BONES: Normal. OTHER FINDINGS: Left renal pelvis calculus unchanged in position. IMPRESSION: No change in position of left renal pelvis calculus.
[2019-04-16 14:45] VITALS: BP 122/82; PULSE 85; TEMP 98.8
[2019-04-16] MEDS: Morphine 2 mg/ml ISec IVP PRN (15:47)
--- NOTE | 2019-04-18 20:02 | HP ---
DATE OF EXAM: 04/15/2019 HISTORY OF PRESENT ILLNESS: This 33-year-old male was examined at his bedside on the afternoon of Wednesday, April 15, 2019. Present for this interview was his fiance and case was reviewed in detail with nurse Jared Dos Santos, registered nurse. Mr. Hutton is a 33-year-old gentleman with recurrent nephrolithiasis. He presented to the [facility] ER earlier this morning and case was reviewed with Dr. Donato Gaffney, emergency room physician. The patient had a left-sided abdominal flank pain. It was sharp and intermittent, it was associated with nausea and vomiting and the patient was noted on radiographic findings to have obstructive left ureteral obstructive uropathy. He was admitted, placed on IV fluid hydration and a consultation with Dr. Ino Cevallos was obtained. At the time of my interview, the patient had no fever or chills and states he has been on no medication for previous history of nephrolithiasis. MEDICATIONS: The patient occasionally takes Ventolin inhaler for shortness of breath. ALLERGIES: HE ADMITS TO ALLERGY TO SHELLFISH. SOCIAL HISTORY: He is nondrinker, nonsmoker and non IV drug misuser. He is employed full-time in [place]. REVIEW OF SYSTEMS: CONSTITUTIONAL: He denied fever or chills. HEAD: No headache or seizures. EYES: No change in visual acuity. EARS: No hearing loss. THROAT: No swallowing difficulty. NECK: No stiffness. CARDIAC: No knowledge of palpitation or hypertension. PULMONARY: No cough. No hemoptysis. GI: As per HPI. : No hematuria. VASCULAR: No claudication. PSYCHOLOGICAL: No anxiety and no depression. NEUROLOGICAL: No knowledge of stroke. FAMILY HISTORY: Noncontributory. PHYSICAL EXAMINATION: VITAL SIGNS: Temperature 98.6, respirations 13, pulse 62 and blood pressure 124/84 with pulse ox 97% room air. HEENT: Head normocephalic and atraumatic. Eyes: No icterus. Ears: Clear. Throat: Noninjected. NECK: Supple. HEART: S1 and S2. LUNGS: Clear. ABDOMEN: Soft. EXTREMITIES: No edema. SKIN: Without rash. NEUROLOGICAL: Intact. PSYCHOLOGICAL: Alert. VASCULAR: Legs warm to touch. LABORATORY DATA: White count 16,900, hemoglobin 14.5, hematocrit 44.3 and platelets 282,000. Sodium 140, potassium 4.5, chloride 104, bicarb 25, BUN 11, creatinine 1.2, random blood sugar 107, calcium 9.5, bilirubin 0.7, AST 35, ALT 22, and alk phos 98. Lipase 50. Urinalysis showed moderate bacteria, 5-10 RBCs and 2-[address] was reviewed, it showed obstructive left renal pelvis calculus measuring 6 x 6 mm causing a mild hydronephrosis with additional nonobstructive left lower pole calculi. IMPRESSION: This is a 33-year-old male with recurrent nephrolithiasis. PLAN: Obtain consultation with Dr. Ino Cevallos from Urology. The patient will be placed on IV fluid hydration, regular diet as tolerated. He is instructed to strain all urine for calculi and is ordered to have Tylenol p.r.n. pain, antiembolism sequential stockings have been requested and based on clinical progress, additional diagnostic workup and testing will be entertained. Greater than 75 minutes was spent in the care management, review of labs, orders, x-rays and discussion of this patient with himself and family member at bedside, nursing. All questions were answered. Maci Manning MD
--- NOTE | 2019-04-19 01:39 | DS ---
FINAL DIAGNOSIS: Obstructive left hydronephrosis secondary to newly noted kidney stone. Discharged to home. The patient to follow up with Dr. Ino Cevallos, 04/18/2019. The patient was instructed to call Dr. Cevallos directly at his office for scheduling of outpatient lithotripsy. The patient was also evaluated by Dr. Cevallos who spoke with the patient personally and the patient is aware that he has an obstructive kidney stone causing mild hydronephrosis of his left kidney measuring 6 x 6 mm and this requires urological followup to avoid permanent kidney injury. SUMMARY: This 33-year-old male who presented with left flank pain, nausea, and vomiting and was found on CT of the abdomen to have a 6 x 6 mm left hydronephrosis secondary to obstructive nephropathy, was admitted, hydrated, and treated with oral Tylenol and able to tolerate regular diet and cleared for discharge by myself and Dr. Cevallos. PHYSICAL EXAMINATION: VITAL SIGNS: At the time of his discharge, his temperature was 98.8, respirations 18, pulse 85 and blood pressure 122/82 with a pulse ox of 95% on room air. LABORATORY DATA: His sodium was 137, K 4.1, chloride 107, bicarb 25, BUN 8, creatinine 0.9, and random blood sugar 94 with all LFTs normal. White count was 8200, hemoglobin 13.6, hematocrit 42.6, and platelets 278,000. HOSPITAL COURSE: The patient was cleared for discharge to home, advised for any change in signs and symptoms including fever, chills, or inability to urinate to present directly to the ER, hopefully he will be compliant and follow up with Dr. Cevallos as directed on 04/18/2019, at which time he will be scheduled for lithotripsy. It should be noted followup abdominal x-ray on 04/16/2019 showed no change in the position of the left renal pelvis calculus, but there was no evidence of any bowel obstruction or free air. All of the above was discussed with the patient. All questions were answered. Maci Manning MD
== END 2019-04-16 18:36 | disposition home or self-care (01) ==
LOC: ED 01:25 → ERH 05:05 → 5RSO 06:42
PROVIDERS: ADMIT Internal Medicine; ATTEND Internal Medicine
DX: N13.2 Hydronephrosis with renal and ureteral calculous obstruction (principal); N13.8 Other obstructive and reflux uropathy; J45.909 Unspecified asthma, uncomplicated; Z82.3 Family history of stroke
CPT/HCPCS: 36415; 74022; 74176; 80053; 81001; 83690; 85027; 96365; 96366; 96375; 96376; 99285; G0378; J0696; J1885; J2270; J2405; J7030